=== PATIENT | male | born 1995 | race African-American/Black ===

== ENCOUNTER 2023-09-13 12:51 | Emergency (ER) | payer SELFPAY ==
[2023-09-13 13:04] VITALS: BP 120/75; PULSE 89; RESP 17; TEMP 98.3; BMI 28.1
== END 2023-09-13 14:56 | disposition home or self-care (01) ==
LOC: JER 12:51
DX: N52.9 Male erectile dysfunction, unspecified (principal)
CPT/HCPCS: 99282-25